=== PATIENT | male | born 1990 | race Caucasian/White ===

== ENCOUNTER 2017-01-30 22:33 | Emergency (ER) | payer BC ==
[~2017-01-30] VITALS: Ht 180.3 cm; Wt 84.2 kg
[2017-01-31 02:34] VITALS: BP 126/83
== END 2017-01-31 02:39 | disposition home or self-care (01) ==
LOC: EME 22:33
DX: G43.909 Migraine, unspecified, not intractable, without status migrainosus (principal); M54.9 Dorsalgia, unspecified
CPT/HCPCS: 99281; 99285; J1200; J1885; J2765; J7030